=== PATIENT | female | born 1940 | race Caucasian/White ===

== ENCOUNTER → 2016-07-15 | Outpatient (CLI) | payer MEDICARE, OTHER ==
--- NOTE | 2016-07-15 11:19 | RADRPT ---
PROCEDURE: XR right kidney. CLINICAL INDICATION: Knee pain TECHNIQUE: AP weightbearing, PA weightbearing, lateral weightbearing and sunrise views are availab le for review. COMPARISON: None available FINDINGS: There is moderate to severe osteoarthrosis involving the medial tibial femoral compartment and kevin lofemoral compartment and moderate osteoarthrosis involving the lateral tibial femoral compartment. This is associated with joint space narrowing, subchondral sclerosis and osteophytosis. There is otherwise normal mineralization, architecture and alignment. No fractures are identified. No osseous lesions are identified. The soft tissues are unremarkable. IMPRESSION: Moderate to severe osteoarthrosis involving the medial tibial femoral compartment and patellofemoral compartment and moderate osteoarthrosis involving the lateral tibial femoral compartment. RPTAT: [facility] .Bill Majano MD, Date Time Electronically viewed and signed by .Bill Majano MD, on 07/15/2016 11:19 .B/
== END | disposition home or self-care (01) ==
LOC: HKI 08:23
PROVIDERS: ATTEND Orthopaedic Surgery
DX: M17.11 Unilateral primary osteoarthritis, right knee (principal); M25.561 Pain in right knee; Z96.652 Presence of left artificial knee joint
CPT/HCPCS: 20610; 73564; G0463; J7327